=== PATIENT | female | born 1945 | race African-American/Black ===

== ENCOUNTER → 2019-09-24 | Day surgery (SDC) | payer OTHER ==
[2019-09-24 13:36] LABS: ALBUMIN 3.7 g/dl (3.4-5.0); BILIRUBIN,TOTAL 0.7 mg/dL (0.2-1); BLOOD UREA NITROGEN 13.6 mg/dL (7-18); CALCIUM 9.8 mg/dL (8.5-10.1); CREATININE 0.8 mg/dL (0.55-1.3); POTASSIUM 5.2 mmol/L (3.5-5.1); TOT PROT 7.4 g/dl (6.4-8.2)
--- NOTE | 2019-09-26 16:55 | PATH ---
Cytology Non-Gynecological Report Patient Name: MARIANNA CABAN [facility]. Rec. #: [id number] /Age/Gender: 1945 (Age: 74) / F Account: [id number] Location: RADIOLOGY INTER Taken: 09/24/2019 Received: 09/24/2019 Reported: 09/26/2019 Physicians: Alfredo Gan M.D. Specimen(s) Received THYROID, LEFT, FINE NEEDLE ASPIRATION Clinical History Left thyroid, 3.62 x 2.19 x 2.64 cm Final Diagnosis THYROID, LEFT, FINE NEEDLE ASPIRATION: SATISFACTORY FOR EVALUATION. BETHESDA CLASS II: BENIGN. CYTOLOGIC FINDINGS ARE CONSISTENT WITH A BENIGN FOLLICULAR NODULE. SMALL FOLLICULAR CELLS IN A BACKGROUND OF ABUNDANT COLLOID AND FEW MACROPHAGES. Electronically Signed Rivka Ruffin M.D. Gross Description Received are eight direct smears, four of which are air-dried and Diff-Quik stained, and four of which are alcohol fixed and Pap stained. Also received is 20 ml of bloody formalin from which one cellblock is prepared.
== END | disposition home or self-care (01) ==
LOC: JRADIR 11:18
PROVIDERS: ATTEND Internal Medicine Endocrinology, Diabetes & Metabolism
PROC: 0G9K3ZX Drainage of Thyroid Gland, Percutaneous Approach, Diagnostic (ICD-10-PCS; principal; 2019-09-24)
DX: E04.1 Nontoxic single thyroid nodule (principal)
CPT/HCPCS: 36415; 76942; 80053; 80061; 82043; 82570; 83036; 83721; 84443; 88173; 88305-TC

== ENCOUNTER → 2019-10-02 | Day surgery (SDC) | payer OTHER ==
--- NOTE | 2019-10-04 19:49 | PATH ---
Cytology Non-Gynecological Report Patient Name: MARIANNA CABAN [facility]. Rec. #: [id number] /Age/Gender: 1945 (Age: 74) / F Account: [id number] Location: RADIOLOGY INTER Taken: 10/02/2019 Received: 10/02/2019 Reported: 10/04/2019 Physicians: Alfredo aGn M.D. Specimen(s) Received RIGHT THYROID FNA Clinical History Right, 3.28 x 1.58 x 2.30 cm Final Diagnosis THYROID, RIGHT, FINE NEEDLE ASPIRATION: SATISFACTORY FOR EVALUATION. BETHESDA CLASS II: BENIGN. CYTOLOGIC FINDINGS ARE CONSISTENT WITH A BENIGN FOLLICULAR NODULE WITH CYSTIC CHANGE. FOLLICULAR CELLS IN A BACKGROUND OF THIN COLLOID, MACROPHAGES, LYMPHOCYTES, AND CRUSHED LYMPHOID AGGREGATES. Comment: Presence of lymphocytes and lymphoid aggregates raise the possibility of chronic lymphocytic thyroiditis. Suggest clinical, radiologic, and serologic correlation. Prior material is noted. Electronically Signed Rivka Ruffin M.D. Gross Description Received are eight direct smears, four of which are air-dried and Diff-Quik stained, and four of which are alcohol fixed and Pap stained. Also received is 20 ml of bloody formalin from which one cellblock is prepared.
== END | disposition home or self-care (01) ==
LOC: JRADIR 11:11
PROVIDERS: ATTEND Internal Medicine Endocrinology, Diabetes & Metabolism
PROC: 0G9H3ZX Drainage of Right Thyroid Gland Lobe, Percutaneous Approach, Diagnostic (ICD-10-PCS; principal; 2019-10-02)
DX: E04.1 Nontoxic single thyroid nodule (principal)
CPT/HCPCS: 76942; 88173; 88305-TC

== ENCOUNTER 2019-11-05 04:19 | Day surgery (SDC) | payer OTHER ==
[2019-11-04 16:51] VITALS: BMI 26.4
[~2019-11-05 04:19] MED LIST: ceFAZolin SODIUM 1 GM VIAL IVPB ONE
[2019-11-05] MEDS ORDERED: DEXTROSE 50%-WATER 25 GM/50 ML DISP.SYRIN ONE (09:38)
[2019-11-05] MEDS ORDERED: DEXTROSE 50%-WATER 25 GM/50 ML DISP.SYRIN IVPUSH ONE (09:40)
[2019-11-05] MEDS ORDERED: DEXTROSE 50%-WATER - 25 GM/50 ML VIAL IVPUSH ONE (09:59)
--- NOTE | 2019-11-05 11:38 | CONS ---
DATE OF CONSULTATION: DATE OF DICTATION: 11/05/2019 A 74-year-old female with history of intermittent left flank pain. She does have history of nephrolithiasis. Also has persistent microscopic hematuria. Patient does have history of diabetes and hypertension. She is G2, P2. Presently, she takes metformin, a statin, and metoprolol. She denies any allergies, ethanolism, or tobacco. Physical exam revealed a well-developed adult female in no distress. Abdomen was soft. There is left CVA tenderness, left lower quadrant tenderness. Her BUN was 19 and creatinine 0.8. Renal ultrasound revealed a 6-mm stone in the left lower pole of the kidney. Pelvic exam revealed atrophic vaginitis with normal meatus. IMPRESSION: Left renal stone with hematuria. PLAN: Left extracorporeal shock wave lithotripsy. This was explained to patient and she agrees. GREGORY CONTRERAS M.D. [id number]
[2019-11-05] MEDS ORDERED: ceFAZolin SODIUM 1 GM VIAL IVPB ONE (11:40)
[2019-11-05 14:04] VITALS: BP 168/74; PULSE 87; TEMP 97.3
--- NOTE | 2019-11-05 19:08 | OP ---
DATE OF OPERATION: 11/05/2019 PREOPERATIVE DIAGNOSIS: Left renal stone. POSTOPERATIVE DIAGNOSIS: Left renal stone. OPERATIVE PROCEDURE: Left extracorporeal shockwave lithotripsy. ANESTHESIA: General. DESCRIPTION OF PROCEDURE: Under above-stated anesthesia, patient was prepped and draped in the usual sterile manner. She was placed in the dorsal lithotomy position after proper positioning of the patient on the table. The patient received 2500 shocks at an energy rate of 17. There appeared to be good fragmentation. The patient tolerated the procedure well and she returned to the recovery room in good condition. Alfredo [id number]
== END 2019-11-05 13:45 | disposition home or self-care (01) ==
LOC: JASU-SURG 04:19
PROVIDERS: ATTEND Urology
PROC: 0TF4XZZ Fragmentation in Left Kidney Pelvis, External Approach (ICD-10-PCS; principal; 2019-11-05 09:45)
DX: N20.0 Calculus of kidney (principal); I10 Essential (primary) hypertension; D64.9 Anemia, unspecified
CPT/HCPCS: 82962

== ENCOUNTER 2020-05-28 16:48 | Emergency (ER) | payer OTHER ==
[2020-05-28 16:59] VITALS: BP 198/75; PULSE 94; TEMP 97.8; BMI 27.4
[2020-05-28] MEDS ORDERED: NAPROXEN 500 MG TABLET ONE (17:39)
[2020-05-28] MEDS ORDERED: NAPROXEN 500 MG TABLET PO ONE (17:40)
== END 2020-05-28 17:46 | disposition home or self-care (01) ==
LOC: JERFT 16:48
DX: S83.92XA Sprain of unspecified site of left knee, initial encounter (principal)
CPT/HCPCS: 73562-TC-LT-FY; 99284-25